=== PATIENT | male | born 1990 | race Caucasian/White ===

== ENCOUNTER 2019-12-28 12:18 | Day surgery (SDC) | payer OTHER ==
[~2019-12-28] VITALS: Ht 185.4 cm; Wt 86.1 kg
[2019-12-28] MEDS ORDERED: NS 1,000 ML IV ONE (12:45)
[2019-12-28] MEDS ORDERED: ONDANSETRON 4MG/2ML VIAL IV ONE (12:45)
[2019-12-28 12:52] LABS: BASO % 0.2 % (0.0-1.0); EOS % 0.1 % (0.0-3.0); HEMATOCRIT 46.6 % (42.0-52.0); HEMOGLOBIN 15.3 g/dl (13.5-17.5); LYMPH % 5.4 % (24.0-44.0); MEAN CORPUSCULAR HEMOGLOBIN 27.6 pg (27.0-33.0); MEAN CORPUSCULAR HGB CONC 32.8 g/dl (32.0-36.5); MONO # 0.9 10^3/uL (0.0-0.8); MONO % 4.9 % (0.0-5.0); NEUTROPHILS # 16.2 10^3/uL (1.5-8.5); NEUTROPHILS % 89.1 % (36.0-66.0); PLATELET COUNT, AUTOMATED 206 10^3/uL (150-450); RED BLOOD COUNT 5.55 10^6/uL (4.30-6.10); WHITE BLOOD COUNT 18.2 10^3/uL (4.0-10.0)
[2019-12-28 13:14] LABS: ALBUMIN 4.7 GM/DL (3.2-5.2); BILIRUBIN,DIRECT 0.2 MG/DL (0.0-0.2); BILIRUBIN,TOTAL 0.7 MG/DL (0.2-1.0); TOTAL PROTEIN 8.5 GM/DL (6.4-8.2)
[2019-12-28] MEDS ORDERED: ISOVUE-370 76% 100ML VIAL As Ordered ONE (13:28)
[2019-12-28] MEDS ORDERED: PIPERACILLIN/TAZOBACTAM SOD 3.375 GM in D5W MINI-BAG PLUS 50 ML IV ONE (14:15)
--- NOTE | 2019-12-28 16:01 | REP ---
CT ABDOMEN AND PELVIS WITH IV CONTRAST: TECHNIQUE: Axial contrast-enhanced images from the lung bases to the pubic symphysis using 100 mL Isovue-370 intravenous contrast material with multiplanar reformations. The visualized lung bases are clear. The liver, spleen, adrenals, pancreas and kidneys are normal in appearance. There is no hydronephrosis. There is no evidence of abdominal aortic aneurysm. No significant adenopathy is seen in the abdomen or pelvis. No free air is seen. There is thickening of the appendix with mild dilatation. There may be two punctate calcifications in the lumen of the appendix. There appears to be mild adjacent inflammatory change in the periappendiceal fat. Findings are compatible with appendicitis. IMPRESSION: Findings as discussed above compatible with appendicitis. Electronically Signed by Esvin Canales MD 12/29/2019 12:34 P
--- NOTE | 2019-12-28 16:10 | HPEPDOC ---
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 He reports feeling nauseated multiple episodes of vomiting after eating roast beef in the afternoon. He felt nauseated overnight and did not eat dinner and started having initially vague pain. In the morning he had more episodes of vomiting and had increasing sharp pain periumbilically radiating to both right lower quadrant and left lower quadrant area. Denies any diarrhea, fevers or chills. He denies any sick contacts. In the emergency room he was found to have a WBC of 18,000 and tenderness over the right lower quadrant. Examination. A CT of the abdomen was done showing acute appendicitis. ALLERGIES: Please see below. HOME MEDICATIONS: Please see below. PAST MEDICAL HISTORY: 1. No chronic medical problems. PAST SURGICAL HISTORY: 1. Patient reports an abdominal surgery via transverse incision when he was a baby prior to him turning 2. From the looks of it may be from pyloric stenosis.. 2. Septoplasty. PERSONAL/SOCIAL HISTORY: [Denies smoking, alcohol use, or recreational drug use]. Patient is an active duty soldier REVIEW OF SYSTEMS: GENERAL: [Denies chills, fatigue, fever, weight gain and weight loss]. Symptoms are one-day old. Prior to this he was in his usual state of health HEENT: Denies any vision problems or hearing problems. NECK: [Denies any neck pain]. CARDIOVASCULAR: [Denies chest pain and palpitations]. MUSCULOSKELETAL: [Denies arthralgias, back pain and thrombophlebitis]. SKIN: [Denies rash]. NEUROLOGIC: Denies headaches. PSYCHIATRIC: [Denies anxiety and depression]. ENDOCRINE: [Denies thyroid disease]. HEMATOLOGY/ONCOLOGY: [Denies any bleeding or clotting disorder]. HEART: Denies chest pain. PULMONARY: [Denies chronic cough, dyspnea and wheezing]. GASTROINTESTINAL: See HPI. GENITOURINARY: [Denies dysuria, frequency, hematuria and nocturia]. ENDOCRINE: [Denies polydipsia, polyphagia, polyuria, heat or cold intolerance]. INFECTIOUS: [Denies any recent upper respiratory tract infection, UTI, need for use of antibiotics]. NUTRITION: Reports poor appetite secondary to the nausea and vomiting. Last intake this morning he ate a few bites of Beigel.. PHYSICAL EXAMINATION: VITAL SIGNS: Please see below. GENERAL APPEARANCE: Patient sitting up on the stretcher looks overall comfortable. [Awake, alert, oriented]. HEENT: [Normocephalic, atraumatic. [place] palpebral conjunctivae. Anicteric sclerae. Lips moist]. CHEST: [No chest wall abnormalities. Normal respiratory motion/effort]. NECK: [Supple. No thyromegaly. No lymphadenopathies]. LUNGS: [Lung sounds are clear to auscultation bilaterally. No wheezing appreciated]. HEART: [No chest wall abnormalities. Heart rate and rhythm are regular with no murmurs]. ABDOMEN: Abdomen is relatively flat. There is a right upper quadrant transverse incision from his prior abdominal surgery. No associated incisional hernia, umbilical or groin hernia. Relatively hypoactive bowel sounds. Does not appear to be overly distended. Vague tenderness over the periumbilical area slightly in the left lower quadrant area. More prominent right lower quadrant and slight suprapubic tenderness. No guarding. SKIN: Warm and dry. EXTREMITIES: No deformities, no edema. NEUROLOGICAL: Awake, alert, oriented. ANCILLARIES:. LABORATORY DATA: Please see below. MICROBIOLOGY: Please see below. IMAGING: CT abdomen and pelvis A reviewed the images myself. Evidence for acute appendicitis. No perforation, no free air, no discrete abscesses, possibly mild small bowel ileus IMPRESSION AND PLAN: Acute appendicitis with localized peritonitis Patient's symptoms and history as well as physical examination consistent with acute appendicitis. He does seem to be mildly dehydrated and was given 1 L of normal saline bolus in the emergency room. He was also given a dose of Zofran which improved his nausea. He so far has received a dose of Zosyn 3.3375 g IV. It looks like despite the high white count, the appendix is not seemed to be perforated this time and no associated abscess so would still treat this as non-complicated appendicitis. I will keep him on Unasyn 3 g IV every 6 hours perioperatively. We are awaiting availability of the operating room otherwise would proceed with laparoscopic appendectomy. I discussed with the patient the details of the proposed procedure, the benefits of performing the procedure, the most common risks on doing the procedure. This may include risks for bleeding, infection and subsequent abscess formation, injury to nearby bowels and blood vessels laparoscopy and manipulation of bowel and general risk for anesthesia. I have given him a chance to ask questions, voice out concerns. Patient has agreed to proceed. Vital Signs Vital Signs Date Time Temp Pulse Resp B/P (MAP) Pulse Ox O2 Delivery O2 Flow Rate FiO2 12/28/19 15:58 98.3 65 18 126/67 (86) 97 Room Air Laboratory Data Labs 24H Laboratory Tests 2 12/28/19 12:26: Immature Granulocyte % (Auto) 0.3, Neutrophils (%) (Auto) 89.1H, Lymphocytes (%) (Auto) 5.4L, Monocytes (%) (Auto) 4.9, Eosinophils (%) (Auto) 0.1, Basophils (%) (Auto) 0.2, Neutrophils # (Auto) 16.2H, Lymphocytes # (Auto) 1.0L, Monocytes # (Auto) 0.9H, Eosinophils # (Auto) 0.0, Basophils # (Auto) 0.0, Nucleated Red Blood Cells % (auto) 0.0, Total Bilirubin 0.7, Direct Bilirubin 0.2, Aspartate Amino Transf (AST/SGOT) 34, Alanine Aminotransferase (ALT/SGPT) 54, Alkaline Phosphatase 103, Total Protein 8.5H, Albumin 4.7, Albumin/Globulin Ratio 1.2, Lipase 47L 12/28/19 12:37: POC Glucose (Misc Panel) 135H, POC Sodium (Misc Panel) 136, POC Potassium (Misc Panel) 4.1, POC Chloride (Misc Panel) 97L, POC Total CO2 (Misc Panel) 27.0, POC Blood Urea Nitrogen (Misc Panel 15, POC Ionized Calcium (Misc Panel) 4.7, POC Creatinine (Misc Panel) 1.1, POC Hematocrit (Misc Panel) 49.0 12/28/19 13:45: Urine Color YELLOW, Urine Appearance CLEAR, Urine pH 7.0, Urine Specific [place] 1.011, Urine Protein NEGATIVE, Urine Glucose (UA) NEGATIVE, Urine Ketones NEGATIVE, Urine Blood NEGATIVE, Urine Nitrite NEGATIVE, Urine Bilirubin NEGATIVE, Urine Urobilinogen 0.2, Urine Leukocyte Esterase NEGATIVE, Urine WBC (Auto) 0, Urine RBC (Auto) 0, Urine Hyaline Casts (Auto) 0, Urine Bacteria (Auto) NEGATIVE, Urine Squamous Epithelial Cells 0, Urine Sperm (Auto) 12/28/19 15:24: CBC/BMP Laboratory Tests 12/28/19 12:26 Home Medications No Active Prescriptions or Reported Meds Allergies Coded Allergies: No Known Allergies (Unverified , 12/28/19) A-FIB/CHADSVASC A-FIB History Current/History of A-Fib/PAF?: No Current PO Anticoag Therapy: No ARMAND KABA MD Dec 28, 2019 16:10
[2019-12-28 17:15] VITALS: BP 117/70
[2019-12-28] MEDS: LR 1,000 ML IV SCH (17:48)
[2019-12-28] MEDS ORDERED: LIDOCAINE 1% SDV 30ML VIAL As Ordered ONE (18:20)
[2019-12-28] MEDS ORDERED: BUPIVACAINE HCL 0.25% 30ML VIAL As Ordered ONE (18:20)
[2019-12-28] MEDS: AMPICILLIN SOD/SULBACTAM SOD 3 GM in D5W MINI-BAG PLUS 100 ML IV SCH (22:00)
[2019-12-28 22:30] VITALS: BP 115/66
[2019-12-28] MEDS ORDERED: SUGAMMADEX SODIUM 500 MG/5 ML VIAL (BRIDION) As Ordered ONE (23:42)
[2019-12-28] MEDS ORDERED: ROCURONIUM BROMIDE 50 MG/5 ML VIAL As Ordered ONE (23:42)
[2019-12-28] MEDS ORDERED: MIDAZOLAM INJ 2MG/2ML VIAL (J2250 PER 1MG) As Ordered ONE (23:42)
[2019-12-28] MEDS ORDERED: propofoL 200 MG/20 ML VIAL As Ordered ONE (23:42)
[2019-12-28] MEDS ORDERED: dexameTHASONE 4 MG/ML 1ML VIAL (J1100 PER 1MG) As Ordered ONE (23:42)
[2019-12-28] MEDS ORDERED: METOCLOPRAMIDE INJ 10MG/2ML VIAL (J2765 PER 1) As Ordered ONE (23:42)
[2019-12-28] MEDS ORDERED: fentaNYL 100 MCG/2 ML INJECTION (J3010) As Ordered ONE ×2 (23:42→23:43)
[2019-12-28] MEDS ORDERED: LIDOCAINE 2% 100MG/5ML SDV (FOR ANES.) As Ordered ONE (23:42)
[2019-12-28] MEDS ORDERED: ONDANSETRON 4MG/2ML VIAL As Ordered ONE (23:42)
[2019-12-28] MEDS ORDERED: ACETAMINOPHEN 1000MG 100ML IV BTL (OFIRMEV) (J0131 PER 10MG) As Ordered ONE (23:43)
[2019-12-29] MEDS ORDERED: KETOROLAC 30 MG/ML 1ML VIAL As Ordered ONE (00:26)
[2019-12-29] MEDS: KETOROLAC 30 MG/ML 1ML VIAL IV PRN ×2 (00:28→03:26)
[2019-12-29] MEDS ORDERED: PERCOCET 5MG/325MG TAB PO PRN (00:30)
[2019-12-29] MEDS ORDERED: oxyCODONE 5MG TAB PO PRN (00:45)
[2019-12-29] MEDS ORDERED: LR 1,000 ML IV SCH (00:45)
[2019-12-29] MEDS ORDERED: METOCLOPRAMIDE INJ 10MG/2ML VIAL (J2765 PER 1) IV PRN (00:45)
[2019-12-29] MEDS ORDERED: MORPHINE 2 MG/ML 1ML VIAL (J2270) IV PRN (00:45)
[2019-12-29] MEDS ORDERED: ONDANSETRON 4MG/2ML VIAL IV PRN (00:45)
[2019-12-29] MEDS ORDERED: fentaNYL 100 MCG/2 ML INJECTION (J3010) IV PRN (00:45)
[2019-12-29 01:00] VITALS: BP 118/67
[2019-12-29] MEDS: LR 1,000 ML IV SCH (01:05)
[2019-12-29 01:30] VITALS: BP 118/64
[2019-12-29 02:30] VITALS: BP 109/58
[2019-12-29 03:30] VITALS: BP 110/58
[2019-12-29] MEDS: AMPICILLIN SOD/SULBACTAM SOD 3 GM in D5W MINI-BAG PLUS 100 ML IV SCH ×2 (03:34→08:55)
[2019-12-29 04:30] VITALS: BP 111/62
[2019-12-29 06:00] VITALS: BP 112/56
[2019-12-29 06:44] LABS: BASO % 0.1 % (0.0-1.0); HEMATOCRIT 40.2 % (42.0-52.0); HEMOGLOBIN 13.5 g/dl (13.5-17.5); LYMPH # 1.1 10^3/uL (1.5-5.0); LYMPH % 11.2 % (24.0-44.0); MEAN CORPUSCULAR HEMOGLOBIN 28.4 pg (27.0-33.0); MEAN CORPUSCULAR HGB CONC 33.6 g/dl (32.0-36.5); MEAN CORPUSCULAR VOLUME 84.5 fl (80.0-96.0); MONO # 0.3 10^3/uL (0.0-0.8); MONO % 3.6 % (0.0-5.0); NEUTROPHILS # 8.1 10^3/uL (1.5-8.5); NEUTROPHILS % 84.8 % (36.0-66.0); PLATELET COUNT, AUTOMATED 184 10^3/uL (150-450); RED BLOOD COUNT 4.76 10^6/uL (4.30-6.10); WHITE BLOOD COUNT 9.6 10^3/uL (4.0-10.0)
[2019-12-29 07:15] LABS: BLOOD UREA NITROGEN 12 MG/DL (7-18); CALCIUM LEVEL 8.9 MG/DL (8.5-10.1); CARBON DIOXIDE LEVEL 27 MEQ/L (21-32); CHLORIDE LEVEL 105 MEQ/L (98-107); CREATININE FOR GFR 1.19 MG/DL (0.70-1.30); GLOMERULAR FILTRATION RATE > 60.0 (>60); GLUCOSE, FASTING 122 MG/DL (70-100); POTASSIUM SERUM 4.8 MEQ/L (3.5-5.1); SODIUM LEVEL 138 MEQ/L (136-145)
[2019-12-29] MEDS ORDERED: PERCOCET PO (12:34)
--- NOTE | 2019-12-29 13:45 | ROOPDOC ---
[facility] Report Of Operation Report of Operation DATE OF PROCEDURE: 12/29/19 PREPROCEDURE DIAGNOSES: Acute appendicitis POSTPROCEDURE DIAGNOSES: Acute appendicitis. PROCEDURE: Laparoscopic appendectomy. SURGEON: Jm Finnegan MD REMOTE SENSING SCIENTIST: ANESTHESIA: Gen. anesthesia. ESTIMATED BLOOD LOSS: Approximately 10 mL. COMPLICATIONS: None. REMARKS: Healthy 21-year-old male with overnight history of nausea, vomiting and abdominal pain. PROCEDURE NOTE: Inflamed appendix acutely but overall healthy down to the base, mildly distended. A scant amount of reactive fluid in the right gutter no abscess.. DESCRIPTION OF PROCEDURE: . Patient has been given a dose of Zosyn perioperatively.Patient was brought to the operating room, placed supine on the table. Sequential compression device placed for DVT prophylaxis. General endotracheal anesthesia started. The abdomen prepped and draped in usual sterile fashion. After a surgical timeout, we began our surgery Entry into the abdomen done through an incision above the umbilicus. Veress needle inserted on a controlled fashion. Intra-abdominal placement confirmed with saline drop technique. CO2 insufflation started to a pressure of 15 mmHg. Using the same incision an 8 mm port was placed under direct vision of laparoscope. Insertion site was inspected for injury and none was found. He was placed on a Trendelenburg position the right side tilted to about 30 to allow for better visualization of the appendix. Two 5 mm working ports were placed at the suprapubic area and left lower quadrant area under direct vision. Operative findings: On entry there was no adhesions noted to the abdominal wall. The liver appears smooth, gb thin walled, visible small bowel has no distention. On the RLQ, the cecum is mobile, the appendix is acutely inflamed, thickened throughout its course, but no necrosis or ischemia noted. A scant amount of serous fluid around the appendix on the right gutter. The appendix was located. The Surrounding bowels retracted away from the appendix. This was grasped to pull the base of the appendix into view. The mesoappendix was divided using Harmonic scalpel down to the base. Two PDS Endoloops were placed to ligate the appendix at its base then divided with a Harmonic Scalpel the stump cauterized. Stump appears healthy. Appendix was then delivered into an Endo Catch bag and retrieved through the umbilical port site. After re-insufflation the surgical site was inspected for hemostasis. Surrounding areas of the abdomen and inspected for fluid collections or signs of injury. Once satisfied, the abdomen was deflated. All ports removed. The umbilical fascial defect repaired with 0 Vicryl in a mattress fashion. All skin incisions closed with 4-0 Monocryl in a subcuticular fashion. Steri-Strips and gauze dressing used for wound coverage. Patient was promptly awake and extubated and brought to recovery room stable. All counts of sponges and instruments verified to be correct. JM FINNEGAN MD Dec 29, 2019 13:45
== END 2019-12-29 14:30 | disposition home or self-care (01) ==
LOC: M ED 12:18 → M SDC 12:19 → ENRESERV 16:30 → M MS5PR 17:05 → M SDC 12-29 14:30
PROVIDERS: ATTEND Surgery
DX: K35.890 Other acute appendicitis without perforation or gangrene (principal)
CPT/HCPCS: 36415; 44970; 74177; 80047; 80048; 80076; 81001; 83690; 85025; 88304; 96361; 96365; 96366; 96375; 99284; J0131; J1100; J1885; J2250; J2405; J2543; J2765; J3010; Q9967; U0002